=== PATIENT | female | born 1975 | race Two or more races ===

== ENCOUNTER → 2018-01-21 | Outpatient (CLI) | payer BC ==
--- NOTE | 2018-01-22 08:43 | RADIOLOGY REPORT (SQ) ---
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 TECHNIQUE: Multiplanar imaging includes noncontrasted T1, T2, FLAIR, diffusion with ADC map and post gadolinium contrast T1 sequences. Images stored on PACS. Additional thin section sagittal and coronal T2, T1 precontrast, T1 post contrasted images through th e pituitary gland were also obtained CONTRAST TYPE AND DOSE: 15 mL Multihance. RENAL FUNCTION: None required. The patient is less than 50 years old. LIMITATIONS: None. FINDINGS: PITUITARY FOSSA: The pituitary gland is 1.6 cm transverse by 1 cm AP x 0.6 cm craniocaudad . Midline pituitary infundibulum. Normal adjacent cavernous sinuses and optic chiasm. Suprasellar cistern unremarkable. In the leftward half of the anterior lobe pituitary, a 6 x 4 mm nodule is present likely a small micr oadenoma. This is seen as decreased T2 signal on coronal image 7 and decreased contrast enhancement on coronal postcontrast T1 image 7. There is a second, smaller focus of decreased contrast enhancement along the inferior aspect anterior lobe pituitary gland which is nonspecific, 2.5 mm in size. This could represent a second small at a denoma. An old pituitary cyst or hemorrhage could mimic this appearance. CSF SPACES: Normal in size and contour. No hemorrhage. CEREBRUM: Sulci and gyri normal in size and contour. Normal white matter signal on FLAIR imaging. No evidence of hemorrhage, mass, or extraaxial fluid collection. No abnormal enhancement post contrast. POSTERIOR FOSSA: No signal alteration. No hemorrhage. No edema, masses, or mass effect. Internal bjorn tory canals, cerebellopontine angles, mastoids normal. No enhancing lesions. No abnormal enhancement post contrast. DIFFUSION IMAGING: Negative for acute or subacute infarction. ORBITS: No masses. Globes normal. PARANASAL SINUSES: No fluid levels. Mucosa normal. OTHER: No other significant finding. 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 No evidence of left cavernous sinus invasion. Brain parenchyma is otherwise unremarkable. EVIDENCE OF ACUTE STROKE: NO. TECHNICAL DOCUMENTATION: JOB ID: [id number] All Rights Reserved Reading location - IP/workstation name: [email or web address]
== END ==
LOC: RAD 15:27
PROVIDERS: ATTEND Nurse Practitioner Family
DX: E23.6 Other disorders of pituitary gland (principal)
CPT/HCPCS: 70553